=== PATIENT | female | born 1980 | race Two or more races ===

== ENCOUNTER 2018-03-31 16:38 | Emergency (ER) | payer BC, OTHER ==
[~2018-03-31] VITALS: Ht 157.5 cm; Wt 51.7 kg
--- NOTE | 2018-03-31 17:05 | NUR ---
BIB SELF C/O MIDSTERNAL CHEST PAIN, NON RADIATING SINCE THIS MORNING @ 10 AM. PT STS CHEST PRESSURE 6/10 W/ SIDDIQI. DENIES SOB, DIZZINESS, N/V, ARM/JAW PAIN @ THIS TIME. PLACED ON PRIMARY CARE PEDIATRICIAN, NSR, NO ECTOPY NOTED. PT SEEN & EVAL'D BY DR. BROCK & WILL CONT TO MONITOR.
[2018-03-31 17:20] LABS: BASOPHILS % (AUTO) 0.5 % (0.0-2.0); EOSINOPHILS % (AUTO) 0.6 % (0.0-6.0); HEMATOCRIT 39 % (33-45); HEMOGLOBIN 13.1 g/dL (11.5-14.8); LYMPHOCYTES # (AUTO) 2.4 /CMM (0.8-4.8); LYMPHOCYTES % (AUTO) 37.9 % (20.0-44.0); MEAN CORPUSCULAR HGB CONC 34 g/dl (31.0-36.0); MEAN CORPUSCULAR VOLUME 91 fL (82-100); MONOCYTES # (AUTO) 0.6 /CMM (0.1-1.30); MONOCYTES % (AUTO) 9.2 % (2.0-12.0); NEUTROPHILS # (AUTO) 3.3 /CMM (1.8-8.9); NEUTROPHILS % (AUTO) 51.8 % (43.0-81.0); PLATELET COUNT (AUTO) 201 /CMM (150-450); RED BLOOD CELL COUNT(AUTO) 4.29 MIL/uL (4.0-5.2); WHITE BLOOD COUNT (AUTO) 6.4 K/uL (4.3-11.0)
[2018-03-31 17:30] LABS: CALCIUM, SERUM 8.8 mg/dL (8.5-10.1); CARBON DIOXIDE 26 mmol/L (21-32); CHLORIDE 103 mmol/L (98-107); CREATININE 0.5 mg/dL (0.6-1.3); GLUCOSE 87 mg/dL (74-106); POTASSIUM 3.7 mmol/L (3.5-5.1); SODIUM SERUM 139 mmol/L (136-145); UREA NITROGEN, BLOOD 12 mg/dL (7-18)
--- NOTE | 2018-03-31 18:16 | NUR ---
Patient discharged to home in stable condition. Written and verbal after care instructions given. Patient verbalizes understanding of instruction. IV removed. Catheter intact and site benign. Pressure and 4x4 applied to site. No bleeding noted.
[2018-03-31 18:17] VITALS: BP 110/70
== END 2018-03-31 18:18 | disposition home or self-care (01) ==
LOC: ER 16:43
DX: R07.89 Other chest pain (principal)
CPT/HCPCS: 36415; 71045-TC; 80048-TC; 84484-TC; 84702-TC; 85025-TC